=== PATIENT | male | born 1960 | race African-American/Black ===

== ENCOUNTER 2018-01-26 12:09 | Emergency (ER) | payer BC ==
[~2018-01-26] VITALS: Ht 177.8 cm; Wt 86.5 kg
[~2018-01-26 12:09] MED LIST: QUET100 PO; SERO100T PO
[2018-01-26 12:32] VITALS: BP 120/72; PULSE 65; RESP 18; TEMP 98.9; O2SAT 98
[2018-01-26] MEDS ORDERED: DEXAMETHASONE SOD PHOS 20 MG/5 ML VIAL IM ONE (13:15)
[2018-01-26] MEDS: RESP: ALBUTEROL 2.5 MG/IPRATROPIUM 0.5 MG NEB (SCH) INH (13:21)
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
[2018-01-26] MEDS ORDERED: ALBUAER3 INH (14:16)
[2018-01-26] MEDS ORDERED: CIPR-9 PO (14:16)
[2018-01-26] MEDS ORDERED: GUAI1LIQ13 PO (14:16)
[2018-01-26] MEDS ORDERED: PRED20 PO (14:16)
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
== END 2018-01-26 14:45 | disposition home or self-care (01) ==
LOC: PHED 12:09 → PHEFT 14:45
DX: J20.9 Acute bronchitis, unspecified (principal); R06.2 Wheezing; M19.90 Unspecified osteoarthritis, unspecified site; F17.210 Nicotine dependence, cigarettes, uncomplicated
CPT/HCPCS: 71045; 94640; 94664; 96372; 99283; J1100